=== PATIENT | female | born 1940 | race African-American/Black ===

== ENCOUNTER 2022-03-20 15:49 | Outpatient (CLI) | payer MEDICARE ==
--- NOTE | 2022-03-20 16:45 | XRay Report ---
XR femur 2+V RT INDICATION / CLINICAL INFORMATION: M25.561 PAIN IN RT KNEE. COMPARISON: 01/18/2022 FINDINGS: BONES/JOINT(S): No acute fracture or subluxation. Previous right hip arthroplasty and intramedullary nail placement into the distal right femur. No concerning change in alignment from the prior exam. No focal bone erosions or focal osteopenia to suggest inflammatory arthropathy. SOFT TISSUES: No significant abnormality. ADDITIONAL FINDINGS: None. Signer Name: Rolando Mathew MD Signed: 03/20/2022 4:41 PM Workstation Name: [id number]
== END 2022-03-20 15:50 | disposition home or self-care (01) ==
LOC: XRAY 15:49
PROVIDERS: ATTEND Orthopaedic Surgery
DX: M25.561 Pain in right knee (principal)

== ENCOUNTER 2022-05-07 15:41 | Outpatient (CLI) | payer MEDICARE ==
--- NOTE | 2022-05-07 18:19 | XRay Report ---
RIGHT FEMUR 2 VIEW(S) INDICATION / CLINICAL INFORMATION: Fracture rt Femur COMPARISON: 03/20/22 FINDINGS: BONES / JOINT(S): No acute fracture or subluxation. Right bipolar hip hemiarthroplasty appears unchan ged. Distal femoral intramedullary [place] with proximal and distal locking screws appear unchanged. Heal ed distal femoral fracture. Patellar internal fixation hardware is unchanged. SOFT TISSUES: No significant abnormality. ADDITIONAL FINDINGS: None. IMPRESSION: 1. No acute findings. Signer Name: Polly Erickson MD Signed: 05/07/2022 6:14 PM Workstation Name: [id number]
== END 2022-05-07 15:42 | disposition home or self-care (01) ==
LOC: XRAY 15:41
PROVIDERS: ATTEND Orthopaedic Surgery
DX: S72.401D Unspecified fracture of lower end of right femur, subsequent encounter for closed fracture with routine healing (principal); X58.XXXD Exposure to other specified factors, subsequent encounter